=== PATIENT | female | born 1960 | race Caucasian/White ===

== ENCOUNTER 2022-01-02 11:10 | Emergency (ER) | payer OTHER, MEDICARE, SELFPAY ==
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
[2022-01-02 11:13] VITALS: BP 141/104; PULSE 82; RESP 18; TEMP 37.1; O2SAT 98
[2022-01-02] MEDS: ACETAMINOPHEN 325 MG TABLET 650 MG PO (12:06)
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
[2022-01-02] MEDS: IBUPROFEN 400 MG TABLET PO (12:55)
[2022-01-02] MEDS: LIDOCAINE 5% PATCH 1 PATCH TRANSDERM (13:43)
== END 2022-01-02 13:45 | disposition home or self-care (01) ==
PROVIDERS: Emergency Provider Emergency Medicine; PCP Family Medicine
DX: S39.012A Strain of muscle, fascia and tendon of lower back, initial encounter (principal); R51.9 Headache, unspecified; M54.30 Sciatica, unspecified side; I10 Essential (primary) hypertension; E03.9 Hypothyroidism, unspecified; G47.33 Obstructive sleep apnea (adult) (pediatric); Z96.659 Presence of unspecified artificial knee joint; Z87.891 Personal history of nicotine dependence; M47.816 Spondylosis without myelopathy or radiculopathy, lumbar region; D35.02 Benign neoplasm of left adrenal gland; V43.52XA Car driver injured in collision with other type car in traffic accident, initial encounter
CPT/HCPCS: 72131; 96374; 99284; A9270; J1100

== ENCOUNTER 2022-02-28 09:26 | Outpatient (CLI) | payer MEDICARE, SELFPAY ==
--- NOTE | ~2022-02-28 | XR_ITS ---
EXAMINATION: XR sacroiliac joints min 3V INDICATION: Sacrococcygeal disorders not otherwise specified. TECHNIQUE: Three views of the sacrum and sacroiliac joints are obtained. COMPARISON: None available FINDINGS: Bone alignment is normal. There is no fracture. No abnormal sclerosis or erosion is identif ied. IMPRESSION: 1. Unremarkable sacroiliac joints. Reviewed, dictated and finalized at location A.
== END 2022-02-28 09:27 ==
LOC: MICIMG 09:29
PROVIDERS: PCP Family Medicine; Visit Provider Family Medicine
DX: M53.3 Sacrococcygeal disorders, not elsewhere classified (principal)
CPT/HCPCS: 72202

== ENCOUNTER 2022-03-01 17:18 | Outpatient (CLI) | payer MEDICARE, SELFPAY ==
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
== END 2022-03-01 17:19 ==
PROVIDERS: PCP Family Medicine; Visit Provider Family Medicine
DX: S82.402A Unspecified fracture of shaft of left fibula, initial encounter for closed fracture (principal); M79.89 Other specified soft tissue disorders
CPT/HCPCS: 73610

== ENCOUNTER → 2022-04-05 13:51 | Outpatient (CLI) | payer MEDICARE, SELFPAY ==
--- NOTE | ~2022-04-05 | MR_ITS ---
EXAMINATION: MR lumbar spine wo con DATE: 04/05/2022 14:26 INDICATION: Lumbar radiculopathy. Low back pain. TECHNIQUE: Magnetic resonance imaging (MRI) of the lumbar spine was performed without intravenous con trast. Sequences included sagittal T2-weighted FSE, sagittal T2-weighted FS FSE, sagittal T1-weighted FSE, and axial T2-weighted FSE. COMPARISON: Lumbar spine CT 01/02/2022 FINDINGS: There is 3 degrees dextrocurvature of lumbar spine. There is 3 mm retrolisthesis of L1 on L 2. There is mildly decreased disc height at L1-L2, L3-L4, and L4-L5. There are hemangiomas in T12 and L1 vertebral bodies. The distal spinal cord signal intensity is normal. The conus medullaris is at T 12-L1. Partially visualized are cysts in left kidney measuring up to 2.5 cm. The following disc level s are specifically discussed: L1-L2: The disc does not extend beyond the endplate margin. There is no facet joint osteoarthritis. T here is no neural foraminal stenosis. There is no central canal stenosis. L2-L3: The disc is mildly bulging. There is no facet joint osteoarthritis. There is mild right neural foraminal stenosis. There is mild central canal stenosis. L3-L4: The disc is bulging and has an annular fissure. There is mild bilateral facet joint osteoarthr itis. There is mild bilateral neural foraminal stenosis. There is mild central canal stenosis. L4-L5: The disc is bulging and has an annular fissure. There is mild bilateral facet joint osteoarthr itis. There is mild bilateral neural foraminal stenosis. There is mild central canal stenosis. L5-S1: The disc is bulging and has an annular fissure. There is mild bilateral facet joint osteoarthr itis. There is mild bilateral neural foraminal stenosis. There is mild central canal stenosis. IMPRESSION: 1. Mild lumbar spondylosis, stable from 01/02/2022. Reviewed, dictated and finalized at location A.
== END ==
PROVIDERS: PCP Family Medicine; Visit Provider Physical Medicine & Rehabilitation
DX: M47.27 Other spondylosis with radiculopathy, lumbosacral region (principal); M48.07 Spinal stenosis, lumbosacral region
CPT/HCPCS: 72148

== ENCOUNTER → 2022-04-26 11:48 | Outpatient (CLI) | payer MEDICARE, SELFPAY ==
--- NOTE | ~2022-04-26 | MM_ITS ---
EXAMINATION: MM screening inderjit BI w yair HISTORY: Screening mammogram, family history of breast cancer in her sister. TECHNIQUE: Craniocaudal and mediolateral oblique 3-D tomosynthesis images were obtained and synthetic 2-D images were generated. CAD analysis was submitted and interpreted. COMPARISON: 05/29/2018, 05/22/2018 BREAST PARENCHYMAL COMPOSITION: The breasts are heterogeneously dense, which may obscure small masses . FINDINGS: Stable bilateral breast masses are considered benign given the lack of interval change. The re is no suspicious mass, calcification, or architectural distortion to suggest malignancy in either breast. There has been no suspicious interval change. IMPRESSION: 1. No mammographic evidence of malignancy. 2. Recommend routine screening mammography in one year. BI-RADS Category 2: Benign finding(s). Reviewed, dictated and finalized at location A.
== END ==
PROVIDERS: PCP Family Medicine; Visit Provider Physician Assistant
DX: Z12.31 Encounter for screening mammogram for malignant neoplasm of breast (principal)
CPT/HCPCS: 77063; 77067

== ENCOUNTER 2022-07-25 13:01 | Outpatient (CLI) | payer MEDICARE, SELFPAY ==
--- NOTE | ~2022-07-25 | US_ITS ---
EXAMINATION: US venous doppler [facility] DATE: 07/25/2022 13:35 INDICATION: Left lower limb pain and swelling TECHNIQUE: Grayscale ultrasound images without and with compression and Doppler ultrasound images of the left lower extremity veins were obtained. COMPARISON: None. FINDINGS: The visualized portions of left common femoral vein, profunda (deep) femoral vein, femoral vein, popl iteal vein, peroneal veins, posterior tibial veins, gastrocnemius vein and greater saphenous vein out flow are patent. IMPRESSION: 1. No deep venous thrombosis in the left lower limb. Reviewed, dictated and finalized at location A.
== END 2022-07-25 13:02 | disposition home or self-care (01) ==
PROVIDERS: PCP Family Medicine; Visit Provider Physician Assistant
DX: R60.9 Edema, unspecified (principal)
CPT/HCPCS: 93971

== ENCOUNTER → 2022-12-25 16:38 | Outpatient (CLI) | payer MEDICARE, SELFPAY ==
--- NOTE | ~2022-12-25 | XR_ITS ---
EXAMINATION: XR abdomen/kub 1V DATE: 12/25/2022 17:31 INDICATION: Constipation and generalized abdominal pain TECHNIQUE: A supine view of the abdomen on 2 radiographs was obtained. COMPARISON: None. FINDINGS: Small amount of gas and stool scattered throughout the proximal and distal colon. The transverse and descending colon appear relatively decompressed. There is additional gas scattered throughout multipl e loops of nondilated small bowel. Moderate-sized hiatal hernia. Cholecystectomy clips in right upper quadrant. Lung bases are clear. IMPRESSION: 1. Nonobstructive bowel gas pattern with small amount of scattered colonic stool. 2. Moderate-sized hiatal hernia. Reviewed, dictated and finalized at location A. KEN PICKER IMPRESSION: 1. Nonobstructive bowel gas pattern with small amount of scattered colonic stoo l. 2. Moderate-sized hiatal hernia.
== END ==
PROVIDERS: PCP Family Medicine; Visit Provider Physician Assistant Medical
DX: K59.00 Constipation, unspecified (principal); K44.9 Diaphragmatic hernia without obstruction or gangrene
CPT/HCPCS: 74018

== ENCOUNTER 2023-08-01 00:59 | Day surgery (SDC) | payer MEDICARE, SELFPAY ==
[2023-07-24 13:43] VITALS: BMI 35.5
--- NOTE | 2023-07-31 17:02 | PM.HPGS ---
History of Present Illness History of Present Illness Consent: Risks, benefits, and alternatives have been discussed and questions answered. Patient agrees to proceed with procedure. Chief complaint: neoplasm screening Narrative: Cydney James is a 62 year old female Referred for colon cancer screening. I do not have the results of her prior colonoscopy Review of Systems Review of Systems: All systems reviewed & are unremarkable except as noted in HPI and below PMFSH Past Medical History Medical History Adrenal adenoma Chronic back pain Depression Hypertension Hypothyroidism Normal colonoscopy (~2012) Sleep apnea, obstructive Surgical History Surgical History History of knee replacement, total Hx of appendectomy Hx of cholecystectomy Family History Family History Other Asthma Family history of malignant neoplasm Social History Social History Years smoked: 2 Smoking status: Former smoker Tobacco type: cigarettes Second hand tobacco smoke exposure: No Smoking end date: 11/18/79 Additional smoking assessment comments: socially only Alcohol intake: current Alcohol use details: rarely Substance use: never Substance use type: does not use Lack of Transportation: No Lack of Food: Never True Current Housing: I Have Housing Concerned About Future Housing: No Difficulty Paying Gas/Electric Bills: No Difficulty Paying for Meds: No Currently Unemployed: No Education: High School Diploma/GED Difficulty w/ Childcare or Family Care: No Living arrangements: alone Occupation/Education: other Gender identity (if verbalized by the patient): Female Spiritual care concerns: No Agree to blood products: No Meds Home Medications and Allergies Home Medications Medication Instructions Recorded Confirmed Type acetaminophen 500 mg capsule 500 mg PO Q6H PRN fever or pain 01/12/22 08/01/23 Rx #30 caps celecoxib 200 mg capsule (Celebrex) 200 mg PO DAILY #30 caps 04/29/23 08/01/23 Rx levothyroxine 50 mcg tablet 50 mcg PO DAILY #90 tabs 06/01/23 08/01/23 Rx lisinopril 40 mg tablet 40 mg PO DAILY 07/24/23 08/01/23 History Allergies Allergy/AdvReac Type Severity Reaction Status Date / Time codeine AdvReac Mild Nausea Verified 08/01/23 10:05 Exam Const: General: alert Orientation/consciousness: patient oriented x3 Resp: Auscultation: clear to auscultation bilaterally Cardio: Rhythm: regular rhythm GI: GI Palp: Yes Soft to palpation and No Tenderness to palpation present (GI) Neuro: General: patient oriented x3 Assessment and Plan Assessment and plan (1) Colon cancer screening: Code(s): Z12.11 - Encounter for screening for malignant neoplasm of colon Status: Acute Assessment and Plan: Colonoscopy with possible biopsy or polypectomy or cautery or injection of substances.
[2023-08-01 10:07] VITALS: BP 140/93; PULSE 62; RESP 18; TEMP 36.3; O2SAT 100
[2023-08-01] MEDS: LACTATED RINGERS 1,000 ML 150 ML IV CONT (10:16)
--- NOTE | 2023-08-01 10:26 | WPDANESEPPF ---
Anes - Initial Pre Proc Eval Procedure: Operation Date: 08/01/23 11:30 Proposed Procedures p Screening Colonoscopy - Lamonte Melchor MD Date/Time: 08/01/23 10:26 Surgeon: Lamonte Melchor MD Pre Op Diagnosis: neoplasm screening Patient Data Age: 62 Gender: F Height: 1.6 m Weight: 92.9 kg Last Vital Signs Temp 36.3 C L 08/01/23 10:07 Pulse 62 08/01/23 10:07 Resp 18 08/01/23 10:07 BP 140/93 H 08/01/23 10:07 Pulse Ox 100 08/01/23 10:07 O2 Del Method Room Air 08/01/23 10:07 Allergies Allergy/AdvReac Type Severity Reaction Status Date / Time codeine AdvReac Mild Nausea Verified 08/01/23 10:05 Home Medications Medication Instructions Recorded Confirmed Type acetaminophen 500 mg capsule 500 mg PO Q6H PRN fever or pain 01/12/22 08/01/23 Rx #30 caps celecoxib 200 mg capsule (Celebrex) 200 mg PO DAILY #30 caps 04/29/23 08/01/23 Rx levothyroxine 50 mcg tablet 50 mcg PO DAILY #90 tabs 06/01/23 08/01/23 Rx lisinopril 40 mg tablet 40 mg PO DAILY 07/24/23 08/01/23 History Patient hx anesthesia problems: none Family hx anesthesia problems: none Results Review: All pre-operative results and documents have been reviewed as part of the pre-operative evaluation. [facility] Past Medical History Medical History Adrenal adenoma Chronic back pain Depression Hypertension Hypothyroidism Normal colonoscopy (~2012) Sleep apnea, obstructive Surgical History Surgical History History of knee replacement, total Hx of appendectomy Hx of cholecystectomy Family History Family History Other Asthma Family history of malignant neoplasm Social History Social History Years smoked: 2 Smoking status: Former smoker Tobacco type: cigarettes Second hand tobacco smoke exposure: No Smoking end date: 11/18/79 Additional smoking assessment comments: socially only Alcohol intake: current Alcohol use details: rarely Substance use: never Substance use type: does not use Lack of Transportation: No Lack of Food: Never True Current Housing: I Have Housing Concerned About Future Housing: No Difficulty Paying Gas/Electric Bills: No Difficulty Paying for Meds: No Currently Unemployed: No Education: High School Diploma/GED Difficulty w/ Childcare or Family Care: No Living arrangements: alone Occupation/Education: other Gender identity (if verbalized by the patient): Female Spiritual care concerns: No Agree to blood products: No Anes - Eval Final PreProcedure Day of Procedure 08/01/23 10:26 Patient weight: obese Heart: regular rate and rhythm Lungs: clear to auscultation Airway: Mallampati scale class II Neurological: alert and oriented Last oral intake: >/= 8 hours ASA classification: III Emergent: no Anesthetic plan: proceed Anesthesia type and monitoring: general GIVS and standard monitoring Results Review: All pre-operative results and documents have been reviewed as part of the pre-operative evaluation. Informed Consent: The patient's anesthetic plan and its attendant risks and benefits were discussed with the patient/family/POA. Questions were solicited and answers provided to the satisfaction of the patient/family/POA.
[2023-08-01] MEDS: SIMETHICONE ORAL SUSPENSION 20 MG/0.3 ML 30 ML BOTTLE 0.6 ML IRRIGATION (11:07)
[2023-08-01 11:18] VITALS: BP 118/84; PULSE 63; RESP 21; O2SAT 94
[2023-08-01 11:28] VITALS: BP 122/82; PULSE 58; RESP 17; O2SAT 95
[2023-08-01 11:38] VITALS: BP 129/78; PULSE 55; RESP 15; O2SAT 100
== END 2023-08-01 11:48 | disposition home or self-care (01) ==
PROVIDERS: PCP Family Medicine; Visit Provider Internal Medicine Gastroenterology
PROC: 0DJD8ZZ Inspection of Lower Intestinal Tract, Via Natural or Artificial Opening Endoscopic (ICD-10-PCS; CPT 45378; principal; 2023-08-01 11:30)
DX: Z12.11 Encounter for screening for malignant neoplasm of colon (principal); K57.30 Diverticulosis of large intestine without perforation or abscess without bleeding; E03.9 Hypothyroidism, unspecified; G89.29 Other chronic pain; I10 Essential (primary) hypertension; F32.A Depression, unspecified; G47.33 Obstructive sleep apnea (adult) (pediatric); D35.00 Benign neoplasm of unspecified adrenal gland; Z80.9 Family history of malignant neoplasm, unspecified; Z87.891 Personal history of nicotine dependence; E66.9 Obesity, unspecified; Z68.36 Body mass index [BMI] 36.0-36.9, adult
CPT/HCPCS: G0121; J2704; J7120

== ENCOUNTER 2024-02-17 19:13 | Emergency (ER) | payer MEDICARE, SELFPAY ==
[2024-02-17 19:24] VITALS: BP 125/78; PULSE 66; RESP 16; TEMP 36.4; O2SAT 99
--- NOTE | 2024-02-17 19:30 | ED.SKABFB ---
HPI - Skin/Abscess/Foreign Bdy General Chief complaint: Skin/Abscess/Foreign Body Stated complaint: left arm swollen/wasp sting Time Seen by Provider: 02/17/24 19:30 Source: patient, RN notes reviewed and old records reviewed Mode of arrival: ambulatory Limitations: no limitations History of Present Illness HPI narrative: 63-year-old female who presents to [facility] with complaints of being stung by a wasp in her left distal upper outer arm 2 days ago with increase swelling, redness, itching and some warmth noted today. Patient has 10 cm X 7 cm area of redness to left upper arm with some noted warmth to tissue and patient reports that area is itchy with some swelling and tightness of tissue. Patient denies any shortness of breath or any difficulty swallowing. Patient has not taken any Benadryl or applied ice to site. MD complaint: insect bite/sting (surrounding redness and swelling) Onset (ago): day(s) (2 days ago) Location: LUE (distal upper arm) Severity: moderate Treatments prior to arrival: none Related Data Allergies Allergy/AdvReac Type Severity Reaction Status Date / Time codeine AdvReac Mild Nausea Verified 08/01/23 10:05 Review of Systems Review of Systems: CONSTITUTIONAL: Denies fever, chills, or sweats. CARDIOVASCULAR: Denies chest pain, palpitations, or edema. RESPIRATORY: Denies cough or dyspnea. GASTROINTESTINAL: Denies abdominal pain, nausea, vomiting SKIN: Reports redness and swelling. with some warmth to her left lateral upper arm and some itching MUSCULOSKELETAL: Denies myalgia. NEUROLOGIC: Denies headache, numbness All systems reviewed & are unremarkable except as noted in HPI and below [facility] Past Medical History Medical History Adrenal adenoma Chronic back pain Depression Hypertension Hypothyroidism Normal colonoscopy (~2012) Sleep apnea, obstructive Surgical History Surgical History History of knee replacement, total Hx of appendectomy Hx of cholecystectomy Family History Family History Other Asthma Family history of malignant neoplasm Social History Social History Years smoked: 2 Smoking status: Former smoker Tobacco type: cigarettes Second hand tobacco smoke exposure: No Smoking end date: 11/18/79 Additional smoking assessment comments: socially only Alcohol intake: current Alcohol use details: rarely Substance use: never Substance use type: does not use Lack of Transportation: No Lack of Food: Never True Current Housing: I Have Housing Concerned About Future Housing: No Difficulty Paying Gas/Electric Bills: No Difficulty Paying for Meds: No Currently Unemployed: No Education: High School Diploma/GED Difficulty w/ Childcare or Family Care: No Living arrangements: alone Occupation/Education: other Gender identity (if verbalized by the patient): Female Spiritual care concerns: No Agree to blood products: No Comments At time of signature, agree with nursing past medical, surgical, social and family history. There is no relevant family history pertinent to the presenting complaint Exam Narrative: GENERAL: Well-appearing, well-nourished, and in no acute distress. HEAD: Normocephalic, atraumatic. EYES: PERRLA and EOMI. ENT: Nares clear, no rhinorrhea or epistaxis. Mucous membranes moist.TM's normal, throat pink with no swelling NECK: Supple.no lymphadenopathy CHEST: Clear to auscultation. No respiratory distress.SAO2 99% on room air no tachypnea HEART: Regular rate and rhythm. No murmur heard. Normal peripheral pulses. ABDOMEN: Soft, nontender, nondistended, normal active bowel sounds. EXTREMITIES: Normal range of motion. No edema. SKIN: Warm, dry. Erythema, induration, no tenderness, warmth to area distal lat
== END 2024-02-17 19:45 | disposition home or self-care (01) ==
PROVIDERS: Emergency Provider Registered Nurse; PCP Family Medicine
DX: T63.461A Toxic effect of venom of wasps, accidental (unintentional), initial encounter (principal); Z87.891 Personal history of nicotine dependence; I10 Essential (primary) hypertension; E03.9 Hypothyroidism, unspecified
CPT/HCPCS: 99213; G0463